=== PATIENT | female | born 2000 | race Caucasian/White ===

== ENCOUNTER 2023-02-14 07:27 | Emergency (ER) | payer MEDICAID ==
[~2023-02-14] VITALS: Ht 154.9 cm; Wt 65.0 kg
[2023-02-14 07:37] VITALS: O2SAT 98
[2023-02-14 09:05] LABS: HCG SCREEN POSITIVE
[2023-02-14 09:50] VITALS: BP 125/89; PULSE 74; RESP 18; TEMP 98.2
== END 2023-02-14 09:52 | disposition home or self-care (01) ==
LOC: ER 07:27
DX: Z00.00 Encounter for general adult medical examination without abnormal findings (principal)
CPT/HCPCS: 36415; 84702; 84703; 99283